=== PATIENT | female | born 2000 | race African-American/Black ===

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

== ENCOUNTER 2023-03-26 19:56 | Emergency (ER) | payer OTHER ==
[~2023-03-26] VITALS: Ht 162.6 cm; Wt 89.1 kg
[2023-03-26 20:01] VITALS: BP 130/84; PULSE 100; TEMP 98.5
== END 2023-03-26 20:31 | disposition home or self-care (01) ==
LOC: COL.ER 19:56
DX: T81.33XA Disruption of traumatic injury wound repair, initial encounter (principal); Z28.310 Unvaccinated for COVID-19

== ENCOUNTER 2024-09-25 09:27 | Emergency (ER) | payer OTHER ==
[~2024-09-25] VITALS: Ht 162.6 cm; Wt 90.9 kg
[2024-09-25 09:43] VITALS: TEMP 98.3
[2024-09-25] MEDS ORDERED: Naproxen 250 MG TAB PO ONE (15:30)
[2024-09-25 15:36] VITALS: BP 121/85; PULSE 90
== END 2024-09-25 15:36 | disposition home or self-care (01) ==
LOC: COL.ER 09:27
DX: Z71.1 Person with feared health complaint in whom no diagnosis is made (principal); F17.200 Nicotine dependence, unspecified, uncomplicated